=== PATIENT | male | born 1995 | race Hispanic/Latino ===

== ENCOUNTER 2021-11-29 13:50 | Emergency (ER) | payer SELFPAY ==
[2021-11-29] MEDS ORDERED: Ondansetron ODT 4 MG TAB ONE (15:52)
[2021-11-29] MEDS ORDERED: Ketorolac Tromethamine 30 MG/ML VIAL ONE (15:53)
== END 2021-11-29 17:13 | disposition home or self-care (01) ==
LOC: CSHERS 13:50
DX: B34.9 Viral infection, unspecified (principal)
CPT/HCPCS: 87804; 96372; 99283; J1885; Q0162